=== PATIENT | male | born 2000 | race Hispanic/Latino ===

== ENCOUNTER 2024-10-18 07:04 | Day surgery (SDC) | payer OTHER ==
[~2024-10-18] VITALS: Ht 170.2 cm; Wt 86.4 kg
[~2024-10-18 07:04] MED LIST: LIDOCAINE 2% 100 MG/5 ML SDV (FOR ANES.) As Ordered ONE; ONDANSETRON 4MG 2ML VIAL As Ordered ONE; ROCURONIUM BROMIDE 50MG/5ML VIAL As Ordered ONE; dexAMETHasone 4 MG/ML 1 ML VIAL As Ordered ONE
[2024-10-18] MEDS ORDERED: LR 1,000 ML IV SCH ×2 (07:25→10:15)
[2024-10-18] MEDS ORDERED: MIDAZOLAM INJ 2 MG/2 ML VIAL As Ordered ONE (07:49)
[2024-10-18] MEDS ORDERED: dexmedeTOMIDine (4 MCG/ML) 200 MCG/50 ML BTL As Ordered ONE (07:50)
[2024-10-18] MEDS ORDERED: ACETAMINOPHEN 1000MG/100ML IV BAG As Ordered ONE (07:51)
[2024-10-18] MEDS ORDERED: SUGAMMADEX SODIUM 500 MG/5 ML VIAL As Ordered ONE (08:35)
[2024-10-18] MEDS: OXYMETAZOLINE 0.05% NASAL SPRAY As Ordered ONE (08:42)
[2024-10-18] MEDS: ONDANSETRON 4MG 2ML VIAL IV PRN (09:15)
[2024-10-18 09:50] VITALS: BP 124/78; TEMP 97.4; O2SAT 99
[2024-10-18] MEDS ORDERED: ONDANSETRON 4MG 2ML VIAL IV PRN (10:15)
== END 2024-10-18 10:08 | disposition home or self-care (01) ==
LOC: M SDC 07:04
PROVIDERS: ATTEND Otolaryngology
DX: J35.01 Chronic tonsillitis (principal); F17.210 Nicotine dependence, cigarettes, uncomplicated
CPT/HCPCS: 42826; 88302; J0131; J1100; J2250; J2405; J3010